=== PATIENT | female | born 1965 | race Caucasian/White ===

== ENCOUNTER → 2025-02-27 07:49 | Outpatient (REF) | payer OTHER, SELFPAY | LOC: MRI 07:49 | PROVIDERS: ATTENDING PHYSICIAN Internal Medicine Cardiovascular Disease; FAMILY PHYSICIAN Family Medicine | DX: R94.31 Abnormal electrocardiogram [ECG] [EKG] (principal) | CPT/HCPCS: 75561; A9585 ==